=== PATIENT | male | born 1975 | race Caucasian/White ===

== ENCOUNTER 2016-12-07 19:49 | Inpatient (IN) | payer OTHER ==
--- NOTE | ~2016-12-07 | HP ---
History And Physical [place] [id number] [facility] [place]. [address] NAME: EAN DAVIS : 73 STATUS : ADM Judit PAT#: [id number] AGE: 41 ADM/REG DATE : 12/07/16 MR#: [id number] REPORT SERV DATE: 12/08/16 DICTATED BY: LARISSA MISHRA DATE: 12/08/16 REPORT STATUS : Draft TRANSCRIBED BY: MODEverett DATE: 12/08/16 DATE OF ADMISSION: 12/07/2016 CHIEF COMPLAINT: Chest pain. HISTORY OF PRESENT ILLNESS: The patient is a 41-year-old male with known coronary artery disease with remote coronary artery bypass grafting in 2011 with subsequent stent in the right coronary artery in 2013 and 2015. The patient was recently seen in the outpatient clinic with complaints of a stable exertional chest pain pattern suggestive of ischemia. The patient was scheduled for cardiac catheterization as an outpatient and medications adjusted. The patient reports for the last 48 hours, he has had increasing chest discomfort. This began to occur at rest yesterday. Multiple nitroglycerin with ultimate relief of pain. Seen in the emergency department, treated with narcotic analgesics and nitroglycerin with resolution of chest pain. Cardiac enzymes have been negative since that time. The patient is currently pain-free. PAST MEDICAL HISTORY: 1. Coronary artery disease. a. Status post 4-vessel coronary artery bypass grafting in 08/2011 with sequential BURRELL to first diagonal and LAD, SVG to OM, and ROSEMARY to PDA. b. Subsequent catheterizations in 2013 and 2015 with patent sequential BURRELL to the diagonal LAD, chronic total occlusion of SVG to OM, and atretic ROSEMARY to RCA. In 11/2013, the patient underwent drug-eluting stent to the distal RCA with a 3.5 x 28 mm drug-eluting stent; 05/05/2016 with KALLIE to the mid RCA (3 x 28 mm Synergy). 2. Hypertension. 3. Hyperlipidemia. SOCIAL HISTORY: Remote smoker. Denies alcohol or illicit drug use. FAMILY HISTORY: Brother with history of coronary artery disease in mid age. Father with myocardial infarction, coronary artery bypass grafting, and multiple stents in the older age. The patient's father underwent coronary artery bypass grafting at age 43. ALLERGIES: THE PATIENT HAS NO KNOWN DRUG ALLERGIES. MEDICATIONS: See home medication list in the chart. REVIEW OF SYSTEMS: Review of systems is negative for all organ systems, except per the history of present illness. PHYSICAL EXAMINATION: VITALS: Blood pressure 137/78, pulse 56, respirations 12 and unlabored, saturating 97% on room air. Weight 86 kg. GENERAL: Middle-aged male in no acute distress. HEENT: Normal. History And Physical [address] [place]. [address] NAME: EAN DAVIS : 73 STATUS : ADM Judit PAT#: [id number] AGE: 41 ADM/REG DATE : 12/07/16 MR#: [id number] REPORT SERV DATE: 12/08/16 DICTATED BY: LARISSA MISHRA DATE: 12/08/16 REPORT STATUS : Draft TRANSCRIBED BY: VISHNU DATE: 12/08/16 NECK: Supple, no JVD or bruit, normal carotid upstroke bilaterally, no thyromegaly. LUNGS: Clear to auscultation and percussion. No wheezes, rales or rhonchi. No use of accessory muscles. CARDIOLOGY: Regular rhythm, normal S1, S2, no thrill, no murmur, rubs or gallops, normal PMI. ABDOMEN: Bowel sounds positive, soft, nontender, and nondistended. No masses or aortic bruits. No hepatosplenomegaly or hepatojugular reflux. EXTREMITIES: No edema. Normal pulses. No clubbing or cyanosis. SKIN: Warm and dry, no significant rash. NEUROLOGIC: Alert and oriented x 3. Appropriate mood. LABORATORY DATA: Sodium 143, potassium 3.8, chloride 106, BUN 12, creatinine 1.04. Glomerular filtration rate 102. Magnesium 2.2. WBC 10.8, hemoglobin 15.6, hematocrit 45.2, and platelets 288,000. Serial troponins negative x2. EKG: Sinus bradycardia rate at 50 beats per minute. Anterolateral T-wave inversions suggestive of ischemia. IMPRESSION: Acute coronary syndrome - the patient currently on intravenous heparin and nitroglycerin paste. Currently, pain-free. Cardiac enzymes negative. The patient already scheduled today for outpatient catheterization. We will proceed with the same. The risks, benefits, and alternatives of procedure have been discussed with the patient. Risks including but not limited to, , myocardial infarction, stroke, renal failure, infection, life-threatening cardiac arrhythmias, severe allergic reaction, and vascular or cardiac injury requiring emergent surgery have been discussed with the patient. The patient's questions have been answered. The patient reports understanding of the potential risks and desires to proceed. Further plans based upon findings at catheterization. CSL/MODL Marshall Mishra M.D. / [id number] CC: Jimmy Hernandez KRISTINA CARLTON
[~2016-12-07 19:49] MED LIST: ALLEGRA180 PO; ASAB PO; ATARAX50B PO; COREG3 PO; COREG6 PO; CYCLOSPORINE100 MG OR; EFFIENT10 PO; HALF81 PO; HCTZ PO; HYDROCHLOROT25 MG PO; IMDUR30 PO; LAMICTAL200 MG PO; LEVOTHYROXIN100 MCG PO; LEVOTHYROXIN112 MCG PO; LEVOTHYROXIN150 MCG PO; LIPITOR20 PO; LIPITOR40 PO; NITROQUICK0.4 MG SL; NITROSTAT0.4 MG SL; OTC VITAMIN D PO; P20 PO; PLAVIX; PLAVIX PO; PRIN5 PO; RAN500 PO; SIMVASTATIN PO; SYN.15 PO; SYN1 PO; SYNTHROID PO; VITAMIN D31000 UNIT PO; ZANTAC 150 PO; ZYRTEC ALLGY10 MG PO
[2016-12-07 20:15] LABS: BASOPHILS 0.2 %; BASOPHILS ABSOLUTE 0.02 10/3/uL (0.0-0.16); EOSINOPHILS 1.4 %; EOSINOPHILS ABSOLUTE 0.17 10/3/uL (0.0-0.53); HEMATOCRIT 45.5 % (40.0-51.0); HEMOGLOBIN 16.1 g/dL (13.6-17.8); IMMATURE GRANULOCYTES 0.2 %; IMMATURE GRANULOCYTES ABSOLUTE 0.02 10/3/uL (0.0-0.11); LYMPHOCYTES 43.5 %; LYMPHOCYTES ABSOLUTE 5.15 10/3/uL (0.67-4.30); MEAN CORPUS HGB CONC 35.4 g/dL (32.0-36.0); MEAN CORPUSCULAR HEMOGLOB 29.5 pg (26.0-34.0); MEAN CORPUSCULAR VOLUME 83.5 fL (80-100); MEAN PLATELET VOLUME 9.5 fL (9.2-13.0); MONOCYTES 7.2 %; MONOCYTES ABSOLUTE 0.85 10/3/uL (0.21-1.20); NEUTROPHILS 47.5 %; NEUTROPHILS ABSOLUTE 5.63 10/3/uL (2.02-8.40); PLATELET COUNT 305 10/3/uL (150-400); RBC DISTRIBUTION WIDTH 13.2 % (12.0-16.0); RED CELL COUNT 5.45 10/6/uL (4.7-6.1); WHITE BLOOD CELLS 11.8 10/3/uL (4.5-10.5)
[2016-12-07 20:23] LABS: PROTIME (NOT ORD) 13.4 SEC (12.0-14.5)
[2016-12-07 20:24] LABS: PARTIAL THROMBO TIME 37.4 SEC (22.5-37.2)
[2016-12-07 20:34] LABS: BUN (BLOOD UREA NITROGEN) 12 MG/DL (6-23); CALCIUM, SERUM 8.6 MG/DL (8.5-10.4); CHEST PAIN PROFILE TAT 0 Hrs 23 Mins; CHLORIDE, SERUM 106 MMOL/L (96-112); CO2 (CARBON DIOXIDE) 31 MMOL/L (24-34); CREATININE 1.04 MG/DL (0.70-1.30); GFR AFRICAN AMERICAN 102 ML/MIN (>=60); GFR NON AFRICAN AMERICAN 88 ML/MIN (>=60); POTASSIUM, SERUM 3.8 MMOL/L (3.5-5.3); SODIUM, SERUM 141 MMOL/L (135-148); TROPONIN I <0.02 NG/ML (<0.05)
[2016-12-07 20:35] LABS: GLUCOSE, SERUM 116 MG/DL (60-99)
[2016-12-07 20:40] LABS: EOSINOPHILS 3 %; EOSINOPHILS ABSOLUTE (CALC) 0.35 10/3/uL (0.0-0.53); ER DIFF TAT 0 Hrs 29 Mins; LYMPHOCYTES 47 %; LYMPHOCYTES ABSOLUTE (CALC) 5.55 10/3/uL (0.67-4.30); MONOCYTES 9 %; MONOCYTES ABSOLUTE (CALC) 1.06 10/3/uL (0.21-1.20); NEUTROPHILS ABSOLUTE (CALC) 4.84 10/3/uL (2.02-8.40); PLATELET ESTIMATE ADQ (ADEQUATE); SEGMENTED NEUTROPHIL (0) 41 %; TOTAL NUCLEATED CELLS 100
[2016-12-07 20:41] LABS: RBC MORPHOLOGY NORM (NORMAL)
[2016-12-07] MEDS ORDERED: ATARAX50B PO ×2 (20:45)
[2016-12-07] MEDS ORDERED: COREG3 PO (20:45)
[2016-12-07] MEDS ORDERED: LAMICTAL200 MG PO (20:45)
[2016-12-07] MEDS ORDERED: PLAVIX PO (20:46)
[2016-12-07] MEDS ORDERED: SYN.15 PO (20:46)
[2016-12-07] MEDS ORDERED: LIPITOR40 PO (20:46)
[2016-12-07] MEDS ORDERED: NITROSTAT0.4 MG SL (20:47)
[2016-12-07] MEDS ORDERED: IMDUR30 PO (20:48)
[2016-12-07] MEDS ORDERED: ASAB PO (20:48)
[2016-12-07] MEDS ORDERED: D 5000 PO (20:48)
[2016-12-08 02:46] LABS: HEMATOCRIT 45.2 % (40.0-51.0); HEMOGLOBIN 15.6 g/dL (13.6-17.8); MEAN CORPUS HGB CONC 34.5 g/dL (32.0-36.0); MEAN CORPUSCULAR HEMOGLOB 29.1 pg (26.0-34.0); MEAN CORPUSCULAR VOLUME 84.2 fL (80-100); MEAN PLATELET VOLUME 9.4 fL (9.2-13.0); PLATELET COUNT 288 10/3/uL (150-400); RBC DISTRIBUTION WIDTH 13.3 % (12.0-16.0); RED CELL COUNT 5.37 10/6/uL (4.7-6.1); WHITE BLOOD CELLS 10.8 10/3/uL (4.5-10.5)
[2016-12-08 02:47] LABS: MANUAL DIFF YES %
[2016-12-08 03:05] LABS: CHOL/HDL RATIO(NOT ORDER) 3.6 (0-5); CHOLESTEROL 129 MG/DL (< 200); HDL CHOLESTEROL 36 MG/DL (> 39); LDL CHOLESTEROL 65 MG/DL (< 130); NON-HDL CHOLESTEROL 93 MG/DL (< 160); SGPT(ALT) 29 U/L (5-65); TROPONIN I <0.02 NG/ML (<0.05)
[2016-12-08 03:08] LABS: LYMPHOCYTES 46 %; LYMPHOCYTES ABSOLUTE (CALC) 4.97 10/3/uL (0.67-4.30); MONOCYTES 9 %; MONOCYTES ABSOLUTE (CALC) 0.97 10/3/uL (0.21-1.20); NEUTROPHILS ABSOLUTE (CALC) 4.86 10/3/uL (2.02-8.40); PLATELET ESTIMATE ADQ (ADEQUATE); RBC MORPHOLOGY NORM (NORMAL); SEGMENTED NEUTROPHIL (0) 45 %; TOTAL NUCLEATED CELLS 100; TRIGLYCERIDE 140 MG/DL (< 150)
[2016-12-08 09:19] LABS: BASOPHILS 0.2 %; BASOPHILS ABSOLUTE 0.02 10/3/uL (0.0-0.16); EOSINOPHILS 1.5 %; EOSINOPHILS ABSOLUTE 0.17 10/3/uL (0.0-0.53); HEMATOCRIT 45.2 % (40.0-51.0); HEMOGLOBIN 15.4 g/dL (13.6-17.8); IMMATURE GRANULOCYTES 0.4 %; IMMATURE GRANULOCYTES ABSOLUTE 0.04 10/3/uL (0.0-0.11); LYMPHOCYTES 38.9 %; MANUAL DIFF NO %; MEAN CORPUS HGB CONC 34.1 g/dL (32.0-36.0); MEAN CORPUSCULAR HEMOGLOB 28.3 pg (26.0-34.0); MEAN CORPUSCULAR VOLUME 83.1 fL (80-100); MEAN PLATELET VOLUME 9.5 fL (9.2-13.0); MONOCYTES 7.8 %; MONOCYTES ABSOLUTE 0.86 10/3/uL (0.21-1.20); NEUTROPHILS 51.2 %; NEUTROPHILS ABSOLUTE 5.66 10/3/uL (2.02-8.40); PLATELET COUNT 273 10/3/uL (150-400); RBC DISTRIBUTION WIDTH 13.3 % (12.0-16.0); RED CELL COUNT 5.44 10/6/uL (4.7-6.1); WHITE BLOOD CELLS 11.1 10/3/uL (4.5-10.5)
[2016-12-08 09:35] LABS: BUN (BLOOD UREA NITROGEN) 11 MG/DL (6-23); CALCIUM, SERUM 8.4 MG/DL (8.5-10.4); CHLORIDE, SERUM 109 MMOL/L (96-112); CHOL/HDL RATIO(NOT ORDER) 3.3 (0-5); CHOLESTEROL 134 MG/DL (< 200); CO2 (CARBON DIOXIDE) 29 MMOL/L (24-34); CREATININE 1.09 MG/DL (0.70-1.30); GFR AFRICAN AMERICAN 97 ML/MIN (>=60); GFR NON AFRICAN AMERICAN 83 ML/MIN (>=60); GLUCOSE, SERUM 102 MG/DL (60-99); HDL CHOLESTEROL 41 MG/DL (> 39); LDL CHOLESTEROL 81 MG/DL (< 130); NON-HDL CHOLESTEROL 93 MG/DL (< 160); POTASSIUM, SERUM 4.1 MMOL/L (3.5-5.3); SODIUM, SERUM 141 MMOL/L (135-148); TRIGLYCERIDE 63 MG/DL (< 150)
[2016-12-08 18:37] LABS: CPK 225 U/L (0-200)
[2016-12-08 18:42] LABS: CK-MB 2.3 NG/ML
[2016-12-09 04:20] LABS: HEMATOCRIT 47.1 % (40.0-51.0); HEMOGLOBIN 15.9 g/dL (13.6-17.8)
[2016-12-09 04:36] LABS: BUN (BLOOD UREA NITROGEN) 10 MG/DL (6-23); CALCIUM, SERUM 8.5 MG/DL (8.5-10.4); CHLORIDE, SERUM 108 MMOL/L (96-112); CO2 (CARBON DIOXIDE) 31 MMOL/L (24-34); CREATININE 1.06 MG/DL (0.70-1.30); GFR AFRICAN AMERICAN 100 ML/MIN (>=60); GFR NON AFRICAN AMERICAN 86 ML/MIN (>=60); GLUCOSE, SERUM 84 MG/DL (60-99); POTASSIUM, SERUM 3.9 MMOL/L (3.5-5.3); SODIUM, SERUM 142 MMOL/L (135-148)
[2016-12-09 04:42] LABS: CK-MB 3.5 NG/ML; CPK 188 U/L (0-200)
== END 2016-12-09 10:30 | disposition home or self-care (01) | DRG 287 ==
LOC: ER 19:49 → CDU1 21:14 → SSU2 12-08 14:32
PROVIDERS: Internal Medicine Cardiovascular Disease; Nurse Practitioner Acute Care
PROC: 4A023N7 Measurement of Cardiac Sampling and Pressure, Left Heart, Percutaneous Approach (ICD-10-PCS; principal; 2016-12-08)
PROC: B2151ZZ Fluoroscopy of Left Heart using Low Osmolar Contrast (ICD-10-PCS; 2016-12-08)
PROC: B2131ZZ Fluoroscopy of Multiple Coronary Artery Bypass Grafts using Low Osmolar Contrast (ICD-10-PCS; 2016-12-08)
PROC: B2171ZZ Fluoroscopy of Right Internal Mammary Bypass Graft using Low Osmolar Contrast (ICD-10-PCS; 2016-12-08)
PROC: B2181ZZ Fluoroscopy of Left Internal Mammary Bypass Graft using Low Osmolar Contrast (ICD-10-PCS; 2016-12-08)
PROC: B2111ZZ Fluoroscopy of Multiple Coronary Arteries using Low Osmolar Contrast (ICD-10-PCS; 2016-12-08)
DX: I25.110 Atherosclerotic heart disease of native coronary artery with unstable angina pectoris (principal); I10 Essential (primary) hypertension; I25.710 Atherosclerosis of autologous vein coronary artery bypass graft(s) with unstable angina pectoris; E78.5 Hyperlipidemia, unspecified; R00.1 Bradycardia, unspecified; E78.00 Pure hypercholesterolemia, unspecified; Z95.1 Presence of aortocoronary bypass graft; Z82.49 Family history of ischemic heart disease and other diseases of the circulatory system; Z95.5 Presence of coronary angioplasty implant and graft; Z87.891 Personal history of nicotine dependence
CPT/HCPCS: 71010; 80048; 80061; 82550; 82553; 83735; 84460; 84484; 85014; 85018; 85025; 85347; 85610; 85730; 93005; 93459; 96374; 96375; 99152; 99153; 99285; A9270-GY; C1725; C1769; C1874; C1887; C1894; C9600; J0360; J1200; J2250; J2405; J3010; Q9967